=== PATIENT | male | born 1995 | race African-American/Black ===

== ENCOUNTER 2017-01-29 10:32 | Emergency (ER) | payer SELFPAY ==
[~2017-01-29] VITALS: Ht 172.7 cm; Wt 77.1 kg
[2017-01-29 10:55] VITALS: BP 119/57
[2017-01-29 11:29] LABS: BILIRUBIN,URINE NEGATIVE (NEG); GLUCOSE,URINE NEGATIVE (NEG); NITRITE,URINE NEGATIVE (NEG); PH,URINE 5.5; PROTEIN,URINE NEGATIVE (NEG-TRACE)
[2017-01-29 11:40] LABS: BACTERIA,URINE FEW /HPF (0-FEW); RBC,URINE OCC /HPF (0-2); SQUAMOUS EPITHELIAL CELL,UR OCC /LPF
[2017-01-29] MEDS ORDERED: AZITHROMYCIN 250 MG TABLET PO ONE (12:30)
[2017-01-29] MEDS ORDERED: METRONIDAZOLE 500 MG TABLET. PO ONE (12:30)
[2017-01-29] MEDS ORDERED: CEFTRIAXONE IM 250 MG VIAL. IM ONE (12:30)
[2017-01-29] MEDS ORDERED: ACYC400T PO (12:41)
--- NOTE | 2017-01-29 12:41 | PHYS DOC ---
Past Medical History Past Medical History: No Pertinent History Past Surgical History: No Surgical History Alcohol Use: Occasionally Drug Use: Marijuana Adult General Chief Complaint Chief Complaint: SEXUALLY TRANSMITTED DISEASE HPI HPI Patient is a 21 year old who presents emergency department stating that he was notified by his significant other that she was being treated for sexually transmitted infections. He states that she received a shot 2 sets of pills and believes that she may be on antibiotics at home but is unsure. He is unsure what STD she was being treated for as she was not able to provide that information to him as well. Patient states that she he has one sexual partner. He also states that he has outbreaks along his penile area. He denies any nausea vomiting fever chills he denies any urinary frequency urgency or pain with urination. Review of Systems Review of Systems Constitutional: Denies fever or chills [] Eyes: Denies change in visual acuity, redness, or eye pain [] HENT: Denies nasal congestion or sore throat [] Respiratory: Denies cough or shortness of breath [] Cardiovascular: No additional information not addressed in HPI [] GI: Denies abdominal pain, nausea, vomiting, bloody stools or diarrhea [] : Denies dysuria or hematuria. C/o penile sores with no drainage [] Musculoskeletal: Denies back pain or joint pain [] Integument: Denies rash or skin lesions [] Neurologic: Denies headache, focal weakness or sensory changes [] Current Medications Current Medications Current Medications Medications (Trade) Dose Ordered Sig/Kendrick Start Time Stop Time Status Last Admin Dose Admin Azithromycin (Zithromax) 1,000 mg 1X ONCE 01/29/17 12:30 01/29/17 12:33 DC Ceftriaxone Sodium (Rocephin Im) 250 mg 1X ONCE 01/29/17 12:30 01/29/17 12:33 DC Metronidazole (Flagyl) 2,000 mg 1X ONCE 01/29/17 12:30 01/29/17 12:33 DC Allergies Allergies Allergies Coded Allergies Type Severity Reaction Last Updated Verified No Known Drug Allergies 01/29/17 No Physical Exam Physical Exam Constitutional: Well developed, well nourished, no acute distress, non-toxic appearance. [] HENT: Normocephalic, atraumatic, bilateral external ears normal, oropharynx moist, no oral exudates, nose normal. [] Eyes: PERRLA, EOMI, conjunctiva normal, no discharge. [] Neck: Normal range of motion, no tenderness, supple, no stridor. [] Cardiovascular:Heart rate regular rhythm, no murmur [] Lungs & Thorax: Bilateral breath sounds clear to auscultation [] Skin: Warm, dry, no erythema, no rash. [] Back: No tenderness Extremities: No tenderness, no cyanosis, no clubbing, ROM intact, no edema. [] Neurologic: Alert and oriented X 3, normal motor function, normal sensory function, no focal deficits noted. [] Psychologic: Affect normal, judgement normal, mood normal. [] Patient has area appears to have areas that are raised and appear pustular. No drainage noted from the areas. Current Patient Data Vital Signs Vital Signs Date Time Temp Pulse Resp B/P Pulse Ox O2 Delivery O2 Flow Rate FiO2 01/29/17 10:55 97.7 93 16 98 Room Air 97.7 Lab Values Laboratory Tests Test 01/29/17 11:15 Urine Collection Type Void Urine Color Yellow Urine Clarity Clear Urine pH 5.5 Urine Specific Mccaskill 1.020 Urine Protein Negativemg/dL (NEG-TRACE) Urine Glucose (UA) Negativemg/dL (NEG) Urine Ketones (Stick) Negativemg/dL (NEG) Urine Blood Negative (NEG) Urine Nitrite Negative (NEG) Urine Bilirubin Negative (NEG) Urine Urobilinogen Dipstick 1.0mg/dL (0.2 mg/dL) Urine Leukocyte Esterase Negative (NEG) Urine RBC Occ/HPF (0-2) Urine WBC 5-10/HPF (0-4) Urine Squamous Epithelial Cells Occ/LPF Urine Bacteria Few/HPF (0-FEW) Urine Mucus Marked/LPF EKG EKG [] Radiology/Procedures Radiology/Procedures [] Course & Med Decision Making Course & Med Decision Making Pertinent Labs and Imaging studies reviewed. (See chart for details) Analysis was negative. Patient will be checked for GC and chlamydia as this is takes 2 days to get the results. Patient will be treated for herpes and will be placed on acyclovir. Patient was also had labs obtained for herpes 1 and 2. Patient has agreed to be treated for sexually transmitted infections he'll be provided with Rocephin and Zithromax and Flagyl. Signs and symptoms to return back to emergency department have been provided. Patient agrees with discharge instructions treatment regimens and follow-up recommendations. Signs and symptoms to return back to the emergency department have been provided. [] Dragon Disclaimer Dragon Disclaimer This electronic medical record was generated, in whole or in part, using a voice recognition dictation system. Departure Departure Impression: Primary Impression: Herpes genitalis in men Additional Impression: STD exposure Disposition: HOME, SELF-CARE Condition: STABLE Referrals: NO PCP (PCP) Patient Instructions: Genital Herpes, Sexually Transmitted Disease, Easy-to- Read Additional Instructions: Activity as tolerated. Medications as prescribed. Follow-up with your primary care physician in the next 5-7 days. Return back to emergency department sign symptoms of become worse. Refrain from sexual activity for at least 1 week. You will be notified if you're sexually transmitted infections are positive. Scripts Acyclovir 400 Mg Tablet1 Tab PO TID #30 TAB Prov:SHAKIRA STALLINGS NP 01/29/17 Problem Qualifiers SHAKIRA STALLINGS NP Jan 29, 2017 12:41
[2017-01-31 18:59] LABS: HSV 1 IGM <1:10 titer (<1:10); HSV 2 IGM <1:10 titer (<1:10)
== END 2017-01-29 13:07 | disposition home or self-care (01) ==
LOC: ER 10:32
DX: A60.01 Herpesviral infection of penis (principal); F12.10 Cannabis abuse, uncomplicated; Z20.2 Contact with and (suspected) exposure to infections with a predominantly sexual mode of transmission
CPT/HCPCS: 36415; 81001; 86695; 87086; 87491; 87591; 96372; 99284; J0696; Q0144